=== PATIENT | male | born 1955 | race Caucasian/White ===

== ENCOUNTER 2017-02-15 16:09 | Emergency (ER) | payer OTHER ==
[~2017-02-15] VITALS: Ht 175.3 cm; Wt 81.8 kg
[2017-02-15] MEDS ORDERED: SODIUM CHLORIDE 0.9% 1,000ML IVBOLUS ONE (16:30)
[2017-02-15 16:58] LABS: ASPARTATE AMINO TRANSFERASE 19 U/L (15-37); BLOOD UREA NITROGEN 19 mg/dL (7-18)
[2017-02-15] MEDS ORDERED: DIAZEPAM 5 MG/ML, 2ML IVPush ONE (17:00)
[2017-02-15] MEDS ORDERED: MORPHINE SULFATE 4 MG/ML, 1ML IVPush PRN (17:00)
[2017-02-15] MEDS ORDERED: ONDANSETRON 2MG/ML, 2ML IVPush ONE (17:00)
[2017-02-15] MEDS ORDERED: SODIUM CHLORIDE FLUSH 10ML SYR IVF ONE (17:00)
[2017-02-15] MEDS ORDERED: ONDANSETRON 2MG/ML, 2ML ONE (17:01)
[2017-02-15] MEDS ORDERED: MORPHINE SULFATE 4 MG/ML, 1ML ONE (17:01)
[2017-02-15 17:06] LABS: IS PT STATUS REG ER OR PRE ER? YES
[2017-02-15] MEDS ORDERED: DIAZEPAM 5 MG TABLET ONE (17:08)
[2017-02-15] MEDS ORDERED: DIAZEPAM 5 MG TABLET PO ONE (17:30)
[2017-02-15 18:02] VITALS: BP 123/74
== END 2017-02-15 18:06 | disposition home or self-care (01) ==
LOC: ED 17:40
DX: G44.209 Tension-type headache, unspecified, not intractable (principal); B02.33 Zoster keratitis; I10 Essential (primary) hypertension; M79.601 Pain in right arm; M54.2 Cervicalgia
CPT/HCPCS: 36415; 70450; 71010; 80053; 84484; 85025; 93005; 96361; 96374; 96375; 99285; J2405; J7030

== ENCOUNTER 2018-05-24 02:57 | Emergency (ER) | payer OTHER ==
[~2018-05-24] VITALS: Ht 175.3 cm; Wt 84.6 kg
[2018-05-24 03:00] VITALS: BP 163/91
[2018-05-24] MEDS ORDERED: ALBUTEROL/IPRATROPIUM 2.5MG/0.5MG, 3 ML ONE (03:48)
[2018-05-24] MEDS ORDERED: SODIUM CHLORIDE FLUSH 10ML SYR IVF ONE (04:00)
[2018-05-24] MEDS ORDERED: SODIUM CHLORIDE 0.9% 1,000ML IVBOLUS ONE (04:00)
[2018-05-24 04:22] LABS: ALANINE AMINOTRANSFERASE 25 U/L (12-78); ALBUMIN 3.7 g/dL (3.4-5.0); ANION GAP 11 mmol/L (5-15); CHLORIDE 106 mmol/L (98-107); CREATININE 0.97 mg/dL (0.7-1.3)
[2018-05-24 04:26] LABS: ALKALINE PHOSPHATASE 76 U/L (45-117); BILIRUBIN,TOTAL 0.7 mg/dL (0.2-1.0); TOTAL PROTEIN 7.8 g/dL (6.4-8.2)
[2018-05-24 04:29] LABS: BASOPHILS % (AUTO) 0 % (0-1); EOSINOPHILS % (AUTO) 0 % (1-7); LYMPHOCYTES # (AUTO) 0.76 x10^3/uL (1-3.4); LYMPHOCYTES % (AUTO) 13 % (22-44); MD NO; MEAN CORPUSCULAR HEMOGLOBIN 30.4 pg (27.5-34.5); MEAN CORPUSCULAR HGB CONC 33.8 g/dL (33.2-36.2); MONOCYTES % (AUTO) 2 % (2-9); NEUTROPHILS # (AUTO) 4.91 x10^3/uL (1.8-6.8); NEUTROPHILS % (AUTO) 85 % (42-75); PLATELET COUNT 327 x10^3/uL (130-400); RED BLOOD COUNT 4.93 x10^6/uL (4.38-5.82); RED CELL DISTRIBUTION WIDTH 15.1 % (9.4-14.8)
== END 2018-05-24 07:17 | disposition home or self-care (01) ==
LOC: ED 05:47
DX: J15.9 Unspecified bacterial pneumonia (principal); B96.89 Other specified bacterial agents as the cause of diseases classified elsewhere; I10 Essential (primary) hypertension; J45.909 Unspecified asthma, uncomplicated; Z87.891 Personal history of nicotine dependence
CPT/HCPCS: 36415; 71046; 80053; 83880; 85025; 93005; 94640; 99285; J7030

== ENCOUNTER 2019-06-18 09:19 | Outpatient (CLI) | payer MEDICARE, OTHER ==
[2019-06-18] MEDS ORDERED: BACL-19 PO (09:51)
[2019-06-18] MEDS ORDERED: LISI5TAB7 PO (09:51)
[2019-06-18] MEDS ORDERED: NAPR220C2 PO (09:51)
[2019-06-18] MEDS ORDERED: ATOR10TA9 PO (09:51)
[2019-06-18] MEDS ORDERED: PRED1TAB19 PO (09:51)
[2019-06-18 10:24] LABS: ALBUMIN 3.8 g/dL (3.4-5.0); ANION GAP 5 mmol/L (5-15); CALCIUM 8.6 mg/dL (8.5-10.1); CHLORIDE 106 mmol/L (98-107)
[2019-06-18 10:28] LABS: ALANINE AMINOTRANSFERASE 17 U/L (12-78); ALKALINE PHOSPHATASE 85 U/L (45-117); BILIRUBIN,TOTAL 1.2 mg/dL (0.2-1.0); CREATININE 1.05 mg/dL (0.7-1.3); TOTAL PROTEIN 7.4 g/dL (6.4-8.2)
== END 2019-06-18 23:59 | disposition home or self-care (01) ==
LOC: STAR 09:19
PROVIDERS: ATTEND Surgery Vascular Surgery
DX: Z01.818 Encounter for other preprocedural examination (principal); K80.20 Calculus of gallbladder without cholecystitis without obstruction; R10.9 Unspecified abdominal pain
CPT/HCPCS: 36415; 80053; 93005

== ENCOUNTER 2019-06-29 06:26 | Day surgery (SDC) | payer MEDICARE, OTHER ==
[~2019-06-29] VITALS: Ht 175.3 cm; Wt 78.5 kg
[~2019-06-29 06:26] MED LIST: ATOR10TA9 PO; BACL-19 PO; LISI5TAB7 PO; NAPR220C2 PO; PRED1TAB19 PO
[2019-06-29 06:46] VITALS: BP 122/84
[2019-06-29] MEDS ORDERED: LACTATED RINGERS 1,000 ML IV SCH (06:48)
[2019-06-29] MEDS ORDERED: LORA-446 PO (06:50)
[2019-06-29] MEDS ORDERED: BUPIVACAINE/EPI 0.5% 1:200K ONE (06:54)
[2019-06-29] MEDS ORDERED: PROPOFOL 50 ML ONE (07:00)
[2019-06-29] MEDS ORDERED: MIDAZOLAM 1 MG/ML, 2ML ONE (07:00)
[2019-06-29] MEDS ORDERED: FENTANYL PF 250 MCG/5ML ONE (07:00)
[2019-06-29] MEDS ORDERED: ROCURONIUM 10 MG/ML,10ML ONE (07:15)
[2019-06-29] MEDS ORDERED: MIDAZOLAM 1 MG/ML, 2ML IV PRN (07:30)
[2019-06-29] MEDS ORDERED: ONDANSETRON ODT 8 MG PO PRN (07:30)
[2019-06-29] MEDS ORDERED: DIPHENHYDRAMINE 50 MG/ML, 1ML IVPush PRN (07:30)
[2019-06-29] MEDS ORDERED: PROMETHAZINE 25 MG/ML, 1ML IV PRN (07:30)
[2019-06-29] MEDS ORDERED: MEPERIDINE/PF 25MG/ML,1ML IVPush PRN (07:30)
[2019-06-29] MEDS ORDERED: DIAZEPAM 5 MG/ML, 2ML IVPush PRN (07:30)
[2019-06-29] MEDS ORDERED: ONDANSETRON 2MG/ML, 2ML IV PRN (07:30)
[2019-06-29] MEDS ORDERED: EPHEDRINE 50 MG/ML, 1ML IM PRN (07:30)
[2019-06-29] MEDS ORDERED: OXYcodone 5 MG/5 ML ORAL.SOL UDC PO PRN (07:30)
[2019-06-29] MEDS ORDERED: MORPHINE SULFATE 4 MG/ML, 1ML IVPush PRN (07:30)
[2019-06-29] MEDS ORDERED: METOPROLOL 1 MG/ML, 5ML IV PRN (07:30)
[2019-06-29] MEDS ORDERED: EPHEDRINE 50 MG/ML, 1ML IVPush PRN (07:30)
[2019-06-29] MEDS ORDERED: CEFAZOLIN 1,000 MG ONE ×2 (07:43)
[2019-06-29] MEDS ORDERED: ONDANSETRON 2MG/ML, 2ML ONE (07:43)
[2019-06-29] MEDS ORDERED: DEXAMETHASONE 4 MG/ML, 1ML ONE (07:43)
[2019-06-29] MEDS ORDERED: FENTANYL PF 100 MCG/2ML ONE (08:15)
[2019-06-29] MEDS ORDERED: OXYcodone 5 MG/5 ML ORAL.SOL UDC ONE (08:15)
[2019-06-29] MEDS ORDERED: ACETAMINOPHEN 650 MG/20.3 ML UDC ONE (08:15)
[2019-06-29] MEDS: FENTANYL PF 100 MCG/2ML IV PRN ×2 (08:18→08:27)
[2019-06-29] MEDS ORDERED: ACETAMINOPHEN 650 MG/20.3 ML UDC PO PRN (08:30)
== END 2019-06-29 10:05 | disposition home or self-care (01) ==
LOC: OUT 06:26
PROVIDERS: ATTEND Surgery Vascular Surgery
DX: K80.10 Calculus of gallbladder with chronic cholecystitis without obstruction (principal); I10 Essential (primary) hypertension; E78.5 Hyperlipidemia, unspecified; F17.210 Nicotine dependence, cigarettes, uncomplicated; Z72.89 Other problems related to lifestyle; Z79.899 Other long term (current) drug therapy; Z87.442 Personal history of urinary calculi; Z88.0 Allergy status to penicillin; Z88.2 Allergy status to sulfonamides; Z98.890 Other specified postprocedural states; Z80.42 Family history of malignant neoplasm of prostate; Z83.79 Family history of other diseases of the digestive system
CPT/HCPCS: 47562; 88304; J0690; J1100; J2250; J2405; J2704; J3010; J7120

== ENCOUNTER 2019-08-24 11:54 | Emergency (ER) | payer MEDICARE ==
[~2019-08-24] VITALS: Ht 175.3 cm; Wt 79.8 kg
[~2019-08-24 11:54] MED LIST changes: +LORA-446 PO
--- NOTE | 2019-08-24 12:48 | NUR ---
Went to pt room. Pt transported in wheelchair from room to imaging.
[2019-08-24 12:55] LABS: BASOPHILS # (AUTO) 0.03 x10^3/uL (0-0.1); BASOPHILS % (AUTO) 1 % (0-1); EOSINOPHILS # (AUTO) 0.04 x10^3/uL (0-0.4); EOSINOPHILS % (AUTO) 1 % (1-7); LYMPHOCYTES # (AUTO) 0.75 x10^3/uL (1-3.4); LYMPHOCYTES % (AUTO) 12 % (22-44); MD NO; MEAN CORPUSCULAR HEMOGLOBIN 28.7 pg (27.5-34.5); MEAN CORPUSCULAR HGB CONC 32.8 g/dL (33.2-36.2); MEAN CORPUSCULAR VOLUME 87.7 fL (81-97); MEAN PLATELET VOLUME 7.4 fL (7.4-10.4); MONOCYTES # (AUTO) 0.73 x10^3/uL (0.2-0.8); MONOCYTES % (AUTO) 12 % (2-9); NEUTROPHILS # (AUTO) 4.65 x10^3/uL (1.8-6.8); NEUTROPHILS % (AUTO) 75 % (42-75); PLATELET COUNT 302 x10^3/uL (130-400); RED BLOOD COUNT 5.22 x10^6/uL (4.38-5.82); RED CELL DISTRIBUTION WIDTH 14.6 % (9.4-14.8)
[2019-08-24 13:04] LABS: ALBUMIN 3.4 g/dL (3.4-5.0); ANION GAP 4 mmol/L (5-15); CALCIUM 8.8 mg/dL (8.5-10.1); CHLORIDE 106 mmol/L (98-107)
[2019-08-24 13:08] LABS: ALKALINE PHOSPHATASE 80 U/L (45-117); TOTAL PROTEIN 7.7 g/dL (6.4-8.2); TROPONIN I < 0.015 ng/mL (0.000-0.045)
[2019-08-24] MEDS ORDERED: LISI5TAB7 PO (13:08)
[2019-08-24] MEDS ORDERED: ATOR10TA9 PO (13:08)
[2019-08-24 13:29] LABS: ALANINE AMINOTRANSFERASE 205 U/L (12-78)
[2019-08-24] MEDS ORDERED: METHOCARBAMOL 750 MG TABLET PO ONE (13:30)
[2019-08-24] MEDS ORDERED: METHOCARBAMOL 500 MG TABLET ONE (13:42)
[2019-08-24] MEDS ORDERED: Prednisone PO (13:46)
[2019-08-24 14:09] VITALS: BP 113/66
--- NOTE | 2019-08-24 15:47 | NUR ---
Patient given discharge instructions and they have confirmed that they understand the instructions. Patient ambulatory with steady gait. Pt left with d/c paperwork, Rx, and all personal belongings.
== END 2019-08-24 15:54 | disposition home or self-care (01) ==
LOC: ED 14:37
DX: M54.6 Pain in thoracic spine (principal); I10 Essential (primary) hypertension; J45.909 Unspecified asthma, uncomplicated
CPT/HCPCS: 36415; 71046; 76700; 80053; 84484; 85025; 85379; 93005; 99284

== ENCOUNTER 2020-03-24 20:55 | Observation (INO) | payer MEDICARE ==
[~2020-03-24] VITALS: Ht 175.3 cm; Wt 80.0 kg
[~2020-03-24 20:55] MED LIST changes: +Prednisone PO
--- NOTE | 2020-03-24 21:30 | NUR ---
late entry: pt came in due to flank pain x2 days, reports hx of kidney stones, increased flank pain, and recent treatment for UTI. Pt is nad, denies additional needs, wctm. placed on spo2/bp monitoring.
[2020-03-24 21:57] LABS: BASOPHILS # (AUTO) 0.02 x10^3/uL (0-0.1); BASOPHILS % (AUTO) 0 % (0-1); EOSINOPHILS % (AUTO) 2 % (1-7); LYMPHOCYTES # (AUTO) 0.94 x10^3/uL (1-3.4); LYMPHOCYTES % (AUTO) 9 % (22-44); MD NO; MEAN PLATELET VOLUME 7.2 fL (7.4-10.4); MONOCYTES # (AUTO) 1.05 x10^3/uL (0.2-0.8); MONOCYTES % (AUTO) 11 % (2-9); NEUTROPHILS # (AUTO) 7.76 x10^3/uL (1.8-6.8); NEUTROPHILS % (AUTO) 78 % (42-75); PLATELET COUNT 307 x10^3/uL (130-400); RED BLOOD COUNT 4.45 x10^6/uL (4.38-5.82); RED CELL DISTRIBUTION WIDTH 14.5 % (9.4-14.8)
[2020-03-24] MEDS ORDERED: KETOROLAC 30 MG/1 ML IM ONE (22:00)
[2020-03-24 22:08] LABS: ALANINE AMINOTRANSFERASE 30 U/L (12-78); ALBUMIN 3.4 g/dL (3.4-5.0); ANION GAP 5 mmol/L (5-15); CALCIUM 8.8 mg/dL (8.5-10.1); CHLORIDE 102 mmol/L (98-107); CREATININE 1.19 mg/dL (0.7-1.3)
[2020-03-24 22:10] LABS: ALKALINE PHOSPHATASE 82 U/L (45-117); BILIRUBIN,TOTAL 0.6 mg/dL (0.2-1.0); TOTAL PROTEIN 7.2 g/dL (6.4-8.2)
[2020-03-24] MEDS ORDERED: KETOROLAC 30 MG/1 ML ONE (22:16)
--- NOTE | 2020-03-24 22:31 | NUR ---
pt medicated per oct, updated on POC, resting on gurney, occassionally moaning due to pain. pt NAD, VSS, WCTM. waiting for test results at this time.
[2020-03-24 22:49] LABS: MICROSCOPIC AUTO
[2020-03-24] MEDS ORDERED: SODIUM CHLORIDE 0.9% 1,000ML IVBOLUS ONE (23:00)
[2020-03-24] MEDS ORDERED: SODIUM CHLORIDE FLUSH 10ML SYR IVF ONE (23:00)
[2020-03-24] MEDS ORDERED: CEFTRIAXONE PMX 1GM/50ML 50 ML ONE (23:30)
[2020-03-24] MEDS ORDERED: CEFTRIAXONE PMX 1GM/50ML 50 ML IV ONE (23:30)
--- NOTE | 2020-03-24 23:33 | NUR ---
task rn arturo started vss nadn,
[2020-03-24] MEDS ORDERED: SODIUM CHLORIDE 0.9% 1,000 ML IV SCH (23:58)
--- NOTE | 2020-03-24 23:59 | NUR ---
PT LAYING IN [facility], RAPID COVID SWAB OBTAINED AND WALKED TO LAB, VSRemigio, EMILY, WAITING FOR ADMIT BED, WCTM.
[2020-03-25] MEDS ORDERED: KETOROLAC 30 MG/1 ML IV PRN
[2020-03-25] MEDS ORDERED: ACETAMINOPHEN 325 MG TABLET PO PRN
[2020-03-25] MEDS ORDERED: LISINOPRIL 5 MG TABLET PO PRN
[2020-03-25] MEDS ORDERED: LORazepam 1MG TABLET PO PRN
[2020-03-25] MEDS ORDERED: HEPARIN 5,000 UNITS/ML, 1ML ONE ×2 (00:09→09:41)
[2020-03-25] MEDS: HEPARIN 5,000 UNITS/ML, 1ML SQ SCH ×3 (00:15→16:00)
--- NOTE | 2020-03-25 01:30 | NUR ---
Pt resting on [facility], [facility] bed ordered for pt due to being a hold. Pt NAD, eyes closed, VSS, waiting for admit bed. no change in condition at this time. WCTM.
--- NOTE | 2020-03-25 03:19 | NUR ---
pt resting in gurney, appears comfortable, eyes closed, NAD, VSS. wctm. waiting for admit bed.
--- NOTE | 2020-03-25 04:43 | NUR ---
pt resting on gujeffy, NAD, VSS, no change in condition waiting for admit bed. wctm.
--- NOTE | 2020-03-25 05:34 | NUR ---
pt resting on bhanu, NAD, no change in condition, waiting for admit bed. WCTM.
[2020-03-25 06:08] LABS: ANION GAP 5 mmol/L (5-15); CALCIUM 8.8 mg/dL (8.5-10.1); CHLORIDE 106 mmol/L (98-107)
[2020-03-25 06:09] LABS: CREATININE 1.25 mg/dL (0.7-1.3)
--- NOTE | 2020-03-25 06:35 | NUR ---
pt resting on his gurney, NAD, no changes in condition, denies additional needs at this time. call light on lap. Manual blood pressure WNL other VSS. waiting for admit bed. Called for hospital bed for patient again. RICCARDO.
[2020-03-25 07:06] LABS: BASOPHILS # (AUTO) 0.06 x10^3/uL (0-0.1); BASOPHILS % (AUTO) 1 % (0-1); EOSINOPHILS # (AUTO) 0.22 x10^3/uL (0-0.4); EOSINOPHILS % (AUTO) 4 % (1-7); LYMPHOCYTES # (AUTO) 1.24 x10^3/uL (1-3.4); LYMPHOCYTES % (AUTO) 19 % (22-44); MEAN CORPUSCULAR HEMOGLOBIN 28.7 pg (27.5-34.5); MEAN CORPUSCULAR HGB CONC 32.3 g/dL (33.2-36.2); MEAN CORPUSCULAR VOLUME 88.8 fL (81-97); MEAN PLATELET VOLUME 7.9 fL (7.4-10.4); MONOCYTES # (AUTO) 0.81 x10^3/uL (0.2-0.8); MONOCYTES % (AUTO) 13 % (2-9); NEUTROPHILS # (AUTO) 4.14 x10^3/uL (1.8-6.8); NEUTROPHILS % (AUTO) 64 % (42-75); PLATELET COUNT 274 x10^3/uL (130-400); RED BLOOD COUNT 3.96 x10^6/uL (4.38-5.82); RED CELL DISTRIBUTION WIDTH 14.2 % (9.4-14.8)
[2020-03-25 07:08] LABS: MD NO
--- NOTE | 2020-03-25 07:19 | NUR ---
RECEIVED REPORT FROM ADI ALVAREZ RN. PT RESTING ON HOSPITAL BED. NADN. EDWARDS.
--- NOTE | 2020-03-25 08:40 | NUR ---
PT RESTING IN BED. NADN.
[2020-03-25] MEDS ORDERED: SENNA/DOCUSATE TABLET ONE (09:41)
[2020-03-25] MEDS: SENNA/DOCUSATE TABLET PO SCH (09:45)
--- NOTE | 2020-03-25 09:47 | NUR ---
PT MEDICATED WITH SQ HEPARIN AND STOOL SOFTENER. PT DOES NOT WANT HIS BACLOFEN AT THIS TIME.
[2020-03-25] MEDS: BACLOFEN 10 MG TABLET PO SCH (10:50)
--- NOTE | 2020-03-25 11:01 | NUR ---
PT RESTING ON GURNEY. NADN. EDWARDS.
--- NOTE | 2020-03-25 11:46 | NUR ---
PT SLEEPING IN BED. NADN. EDWARDS.
--- NOTE | 2020-03-25 13:07 | NUR ---
PT RESTING IN BED. NADN. PT AWARE OF POC FOR OR AT 1700.
--- NOTE | 2020-03-25 14:14 | NUR ---
REPORT GIVEN TO RHODA BROTHERS.
--- NOTE | 2020-03-25 14:51 | NUR ---
Break RN- report to FLOOR HAND.
--- NOTE | 2020-03-25 15:53 | NUR ---
PT RESTING, FAMILY AT BEDSIDE.
[2020-03-25] MEDS ORDERED: CHLORHEXIDINE 15 ML UDC ONE (17:09)
[2020-03-25] MEDS ORDERED: MIDAZOLAM 1 MG/ML, 2ML ONE (17:10)
[2020-03-25] MEDS ORDERED: FENTANYL PF 250 MCG/5ML ONE (17:10)
[2020-03-25] MEDS ORDERED: OXYcodone/APAP 5/325MG TABLET PO PRN (18:30)
[2020-03-25] MEDS ORDERED: ONDANSETRON 2MG/ML, 2ML IVPush PRN (19:00)
[2020-03-25] MEDS ORDERED: morphine SULFATE 10 MG/ML, 1ML IVPush PRN ×2 (19:00)
[2020-03-25] MEDS ORDERED: CEFAZOLIN 1,000 MG IM SCH (19:00)
[2020-03-25] MEDS: SODIUM CHLORIDE 0.9% 1,000 ML IV SCH (19:00)
[2020-03-25 20:36] VITALS: BP 102/63
[2020-03-25] MEDS ORDERED: ATORVASTATIN 10 MG TABLET PO SCH (21:00)
[2020-03-26] MEDS ORDERED: CEFTRIAXONE PMX 1GM/50ML 50 ML IV SCH
[2020-03-26 00:16] VITALS: BP 94/59
[2020-03-26] MEDS ORDERED: CEFAZOLIN 1,000 MG IV SCH (03:00)
[2020-03-26 04:38] LABS: ANION GAP 3 mmol/L (5-15); CALCIUM 8.2 mg/dL (8.5-10.1); CHLORIDE 112 mmol/L (98-107); CREATININE 0.93 mg/dL (0.7-1.3)
[2020-03-26 04:52] LABS: BASOPHILS # (AUTO) 0.04 x10^3/uL (0-0.1); BASOPHILS % (AUTO) 1 % (0-1); EOSINOPHILS # (AUTO) 0.35 x10^3/uL (0-0.4); EOSINOPHILS % (AUTO) 7 % (1-7); LYMPHOCYTES # (AUTO) 1.16 x10^3/uL (1-3.4); LYMPHOCYTES % (AUTO) 22 % (22-44); MD NO; MEAN CORPUSCULAR HEMOGLOBIN 29.2 pg (27.5-34.5); MEAN CORPUSCULAR HGB CONC 32.9 g/dL (33.2-36.2); MEAN CORPUSCULAR VOLUME 88.8 fL (81-97); MEAN PLATELET VOLUME 7.4 fL (7.4-10.4); MONOCYTES # (AUTO) 0.75 x10^3/uL (0.2-0.8); MONOCYTES % (AUTO) 14 % (2-9); NEUTROPHILS # (AUTO) 2.91 x10^3/uL (1.8-6.8); NEUTROPHILS % (AUTO) 56 % (42-75); PLATELET COUNT 254 x10^3/uL (130-400); RED BLOOD COUNT 3.82 x10^6/uL (4.38-5.82); RED CELL DISTRIBUTION WIDTH 14.7 % (9.4-14.8)
[2020-03-26] MEDS: HEPARIN 5,000 UNITS/ML, 1ML SQ SCH ×3 (07:34→16:17)
[2020-03-26] MEDS: SENNA/DOCUSATE TABLET PO SCH (07:36)
[2020-03-26] MEDS: BACLOFEN 10 MG TABLET PO SCH (07:36)
[2020-03-26 07:41] VITALS: BP 95/63
[2020-03-26] MEDS: SODIUM CHLORIDE 0.9% 1,000 ML IV SCH (08:20)
[2020-03-26] MEDS ORDERED: MIDAZOLAM 1 MG/ML, 2ML ONE (08:41)
[2020-03-26] MEDS ORDERED: FENTANYL PF 250 MCG/5ML ONE (08:41)
[2020-03-26] MEDS ORDERED: OXYcodone 5 MG/5 ML ORAL.SOL UDC PO PRN (09:00)
[2020-03-26] MEDS ORDERED: ONDANSETRON 2MG/ML, 2ML IVPush PRN (09:00)
[2020-03-26] MEDS ORDERED: HYDROmorphone 1 MG/ML, 1ML INJ IVPush PRN (09:00)
[2020-03-26] MEDS ORDERED: ACETAMINOPHEN 325 MG TABLET PO PRN (09:00)
[2020-03-26] MEDS ORDERED: PROMETHAZINE 25 MG/ML, 1ML IVPush PRN (09:00)
[2020-03-26] MEDS ORDERED: MEPERIDINE/PF 25MG/0.5ML IVPush PRN (09:00)
[2020-03-26] MEDS ORDERED: FENTANYL PF 100 MCG/2ML IV PRN (09:00)
[2020-03-26] MEDS ORDERED: DEXAMETHASONE 4 MG/ML, 1ML ONE ×2 (09:34→11:24)
[2020-03-26] MEDS ORDERED: ONDANSETRON 2MG/ML, 2ML ONE ×3 (09:34→11:24)
[2020-03-26] MEDS ORDERED: PROPOFOL 10 MG/ML, 20ML ONE ×2 (09:35→11:24)
[2020-03-26] MEDS ORDERED: EPHEDRINE 50 MG/ML, 1ML ONE (09:35)
[2020-03-26 15:20] VITALS: BP 111/68
[2020-03-26] MEDS ORDERED: PHENAZOPYRIDINE 200 MG TABLET PO SCH (16:00)
== END 2020-03-26 17:32 | disposition home or self-care (01) ==
LOC: ED 23:49 → EDIP 03-25 00:04 → INTOOBSV 03-25 00:04 → 4NE 03-25 19:20
PROVIDERS: ADMIT Family Medicine; ATTEND Family Medicine
DX: N20.2 Calculus of kidney with calculus of ureter (principal); Z20.828 Contact with and (suspected) exposure to other viral communicable diseases; E78.5 Hyperlipidemia, unspecified; I10 Essential (primary) hypertension; G80.9 Cerebral palsy, unspecified; J45.909 Unspecified asthma, uncomplicated; N13.6 Pyonephrosis; K62.89 Other specified diseases of anus and rectum; N32.89 Other specified disorders of bladder; Z79.899 Other long term (current) drug therapy
CPT/HCPCS: 36415; 52356; 74018; 74176; 76000; 80048; 80053; 81001; 82360; 85025; 87086; 87635; 88300; 96361; 96365; 96366; 96372; 96375; 99285; C1769; C2617; G0378; J0696; J1100; J1644; J1885; J2250; J2405; J2704; J3010; J7030; 96374